=== PATIENT | female | born 1935 | race Caucasian/White ===

== ENCOUNTER 2016-06-30 07:42 | Emergency (ER) | payer OTHER ==
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
[2016-06-30 08:18] VITALS: BP 196/87; PULSE 75; RESP 18; TEMP 97.5; O2SAT 90
[2016-06-30] MEDS ORDERED: HYDROCODONE/APAP 5/325 TAB PO ONE (09:37)
== END 2016-06-30 10:38 | disposition home or self-care (01) ==
PROC: 0HQ1XZZ Repair Face Skin, External Approach (ICD-10-PCS; principal; 2016-06-30)
DX: S01.81XA Laceration without foreign body of other part of head, initial encounter (principal); S16.1XXA Strain of muscle, fascia and tendon at neck level, initial encounter; I10 Essential (primary) hypertension; Z79.82 Long term (current) use of aspirin; W18.39XA Other fall on same level, initial encounter; Y93.89 Activity, other specified

== ENCOUNTER 2016-08-04 19:30 | Observation (INO) | payer OTHER ==
[2016-08-04] MEDS ORDERED: NS 1,000 ML IV ONE (19:40)
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
[2016-08-04 19:59] LABS: % IMMATURE GRANULYOCYTES 0.3 % (0.0-1.1); ABSOLUTE IMMATURE GRANULOCYTES 0.02 10^3/uL (0.00-0.10); ADD DIFF? NO; ADD MORPH? NO; ADD SCAN? NO; ATYPICAL LYMPHOCYTE FLAG 10 (0-99); FRAGMENT RBC FLAG 0 (0-99); HEMATOCRIT 42.7 % (38.0-47.0); LEFT SHIFT FLG 0 (0-99); LIPEMIA HEMOLYSIS FLAG 80 (0-99); MEAN CELL HEMOGLOBIN 31.6 pg (27.9-34.1); MEAN CELL HEMOGLOBIN CONCENTR. 32.8 g/dL (32.4-36.7); MEAN CELL VOLUME 96.4 fL (81.5-99.8); MEAN PLATELET VOLUME 11.8 fL (8.7-11.7); PLATELET CLUMPS FLAG 0 (0-99); PLATELET COUNT 175 10^3/uL (150-400); RED BLOOD CELL COUNT 4.43 10^6/uL (4.18-5.33); RED CELL DISTRIBUTION WIDTH 13.5 % (11.5-15.2)
[2016-08-04 20:11] LABS: COLOR YELLOW; LEUKOCYTE ESTERASE,URINE NEGATIVE (NEGATIVE); NITRITE,URINE NEGATIVE (NEGATIVE)
[2016-08-04 20:24] LABS: RBC,URINE NONE SEEN /hpf (0-3)
[2016-08-04] MEDS ORDERED: CEFEPIME HCL 2 GM in D5W 100 ML IV ONE (20:26)
[2016-08-04 20:32] LABS: ALANINE AMINOTRANSFERASE 28 IU/L (9-52); ALBUMIN 4.7 g/dL (3.5-5.0); ALKALINE PHOSPHATASE 55 IU/L (38-126); ANION GAP 13 mEq/L (8-16); ASPARTATE AMINOTRANSFERASE 31 IU/L (14-46); BILIRUBIN,TOTAL 0.8 mg/dL (0.1-1.4); BILIRUBIN-CONJUGATED 0.5 mg/dL (0.0-0.5); BILIRUBIN-UNCONJUGATED 0.3 mg/dL (0.0-1.1); CALCIUM 9.9 mg/dL (8.5-10.4); CARBON DIOXIDE 28 mEq/l (22-31); CHLORIDE 101 mEq/L (97-110); CREATININE 1.1 mg/dL (0.6-1.0); GLOMERULAR FILTRATION RATE 48; GLUCOSE 103 mg/dL (70-100); POTASSIUM 4.3 mEq/L (3.5-5.2); SODIUM 142 mEq/L (134-144); TOTAL PROTEIN 8.3 g/dL (6.3-8.2)
[2016-08-04] MEDS ORDERED: ONDANSETRON 4 MG/2 ML VIAL IVP PRN (21:27)
[2016-08-04] MEDS ORDERED: ACETAMINOPHEN 325 MG TAB PO PRN (21:27)
[2016-08-04] MEDS ORDERED: ONDANSETRON DISINTEGRATING 4 MG TAB PO PRN (21:27)
[2016-08-04] MEDS ORDERED: NYSTATIN POWDER 15 GM BTL TP PRN (21:29)
[2016-08-04] MEDS ORDERED: LORAZEPAM PO PRN (21:29)
[2016-08-04] MEDS ORDERED: SENNOSIDES/DOCUSATE SODIUM TAB PO PRN ×2 (21:29)
[2016-08-04] MEDS ORDERED: MAGNESIUM HYDROXIDE 30 ML UDCUP PO PRN (21:29)
[2016-08-04] MEDS ORDERED: hydrALAZINE 25 MG TAB PO PRN (21:29)
[2016-08-04] MEDS ORDERED: LORazepam 1 MG TAB PO PRN (21:29)
[2016-08-04] MEDS ORDERED: HYDROCODONE/APAP 5/325 TAB PO PRN ×2 (21:29)
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
[2016-08-04] MEDS ORDERED: CARBOXYMETHYLCELLULOSE 0.5% 0.4 ML DROPERETTE EACHEYE PRN (22:14)
[2016-08-05 05:17] LABS: % IMMATURE GRANULYOCYTES 0.3 % (0.0-1.1); ABSOLUTE IMMATURE GRANULOCYTES 0.02 10^3/uL (0.00-0.10); ADD DIFF? NO; ADD MORPH? NO; ADD SCAN? NO; ATYPICAL LYMPHOCYTE FLAG 0 (0-99); FRAGMENT RBC FLAG 0 (0-99); HEMATOCRIT 39.3 % (38.0-47.0); HEMOGLOBIN 12.5 g/dL (12.6-16.3); LEFT SHIFT FLG 0 (0-99); LIPEMIA HEMOLYSIS FLAG 80 (0-99); MEAN CELL HEMOGLOBIN 30.8 pg (27.9-34.1); MEAN CELL HEMOGLOBIN CONCENTR. 31.8 g/dL (32.4-36.7); MEAN CELL VOLUME 96.8 fL (81.5-99.8); MEAN PLATELET VOLUME 11.9 fL (8.7-11.7); PLATELET CLUMPS FLAG 10 (0-99); PLATELET COUNT 172 10^3/uL (150-400); RED BLOOD CELL COUNT 4.06 10^6/uL (4.18-5.33); RED CELL DISTRIBUTION WIDTH 13.2 % (11.5-15.2)
[2016-08-05] MEDS ORDERED: COLCHICINE 0.6 MG CAP/TAB PO PRN (08:02)
[2016-08-05] MEDS ORDERED: SENNOSIDES 1 TAB PO PRN (08:02)
[2016-08-05] MEDS ORDERED: ENOXAPARIN 30 MG/0.3 ML SYR SC SCH (09:00)
[2016-08-05] MEDS ORDERED: fentaNYL 12 MCG PATCH TD SCH (09:00)
[2016-08-05] MEDS ORDERED: amLODIPine BESYLATE 5 MG TAB PO SCH (09:00)
[2016-08-05] MEDS ORDERED: LISINOPRIL 40 MG TAB PO SCH (09:00)
[2016-08-05] MEDS ORDERED: METOPROLOL SUCCINATE XR 50 MG TAB PO SCH (09:00)
[2016-08-05] MEDS ORDERED: fentaNYL 25 MCG PATCH TD SCH (09:00)
[2016-08-05] MEDS ORDERED: ASPIRIN EC 81 MG TAB PO SCH (09:00)
[2016-08-05] MEDS ORDERED: DULoxetine 60 MG CAP PO SCH (09:00)
[2016-08-05] MEDS: TOBRAMYCIN/DEXAMETH 5 ML OPHT.BTL RTEYE SCH ×2 (09:35→15:14)
[2016-08-05] MEDS: FUROSEMIDE 20 MG TAB PO SCH (09:36)
[2016-08-05 12:33] VITALS: BP 150/58; PULSE 68; RESP 14; TEMP 97.5; O2SAT 92
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
--- NOTE | 2016-08-05 14:34 | PDIAF ---
- Diagnosis Diagnosis: encephalopathy, agitation Code Status: Full Code - Medication Management Discharge Medications: Medications to Continue on Transfer Acetaminophen [Tylenol ES 500 mg (*)] 1,000 mg PO Q6 PRN 08/04/16 [Last Taken ] Amlodipine Besylate [Norvasc] 5 mg PO DAILY 08/04/16 [Last Taken 08/04/16] Aspirin EC [Aspirin EC 81 mg (*)] 81 mg PO DAILY 08/04/16 [Last Taken 08/04/16] Ativan Gel 0.5mg/1ml 1 ml PO Q6H PRN 08/04/16 [Last Taken 08/04/16] Calcium Carbonate [Tums 500MG (*)] 500 mg PO Q8H PRN 08/04/16 [Last Taken Unknown] Cholecalciferol Vit D3 [Vitamin D3 (*)] 5,000 units PO VALENCIA 08/04/16 [Last Taken Unknown] Colchicine [Colchicine (*)] 0.6 mg PO DAILY PRN 08/04/16 [Last Taken Unknown] DULoxetine [Cymbalta 60 MG (*)] 60 mg PO DAILY 08/04/16 [Last Taken 08/04/16] Furosemide [Lasix 20 MG (*)] 20 mg PO DAILY 08/04/16 [Last Taken 08/04/16] Hydralazine HCl 25 mg PO Q6H PRN 08/04/16 [Last Taken Unknown] Hydrocodone/Acetaminophen [[place] 5/325 (*)] 1 each PO Q4 PRN MDD HOLD FOR SEDATION 08/04/16 [Last Taken Unknown] Hydrocodone/Acetaminophen [[place] 5/325 (*)] 2 each PO Q4H PRN MDD HOLD FOR SEDATION 08/04/16 [Last Taken 08/04/16 07:00] LORazepam [Ativan (*)] 1 mg PO Q8H PRN 08/04/16 [Last Taken 08/03/16] Lisinopril [Zestril 40 mg (*)] 40 mg PO DAILY 08/04/16 [Last Taken 08/04/16] Magnesium Hydroxide [Milk of Magnesia] 30 ml PO Q24H PRN 08/04/16 [Last Taken ] Metoprolol Succinate Xr [Toprol Xl 50 mg (*)] 50 mg PO DAILY 08/04/16 [Last Taken 08/04/16] Nystatin Powder [Mycostatin Powder] 1 rafa TP Q8H PRN 08/04/16 [Last Taken Unknown] Polysorbate 80/Glycerin [Refresh Dry Eye Therapy Drops] 1 drop OP Q8H PRN [Last Taken 08/03/16] Sennosides [Senokot] 1 tab PO Q12H PRN 08/04/16 [Last Taken Unknown] Sennosides/Docusate Sodium [Senna-S Tablet] 2 each PO DAILY PRN 08/04/16 [Last Taken Unknown] Tobramycin/Dexamethasone [Tobradex Eye Drops] 1 drop RTEYE Q6H 08/04/16 [Last Taken Unknown] fentaNYL [Duragesic 12 MCG Patch (*)] 12 mcg TD Q72H 08/04/16 [Last Taken ] fentaNYL [Duragesic 25 MCG Patch (*)] 25 mcg TD Q72H 08/04/16 [Last Taken ] Acetaminophen [Tylenol 325mg (*)] 650 mg PO Q4HRS PRN #0 tab 08/05/16 [Last Taken Unknown] Discharge Medications: Refer to the Discharge Home Medication list for PRN reason. - Orders Services needed: Physical Therapy, Occupational Therapy Diet Recommendation: no restrictions on diet Diet Texture: Regular Texture Diet Bill Stockings Discontinue Date: apply jonathon wraps at night and remove in the a.m. - Follow Up Care Current Providers and Referrals: Patient,NotPresent [Unknown] - As per Instructions
--- NOTE | 2016-08-05 15:03 | GDS ---
[f rep st] DISCHARGE SUMMARY DISCHARGE DIAGNOSES: 1. Agitation/encephalopathy. 2. Hypertension. 3. Congestive heart failure. 4. Chronic obstructive pulmonary disease. Briefly, the patient is an 81-year-old woman who lives at [facility]. She was brought in for agitation. Per the staff, she started throwing food at them. She told me that they were upsetting her and throwing jello at her. She is calm and clear today. She will return to [facility]. HOSPITAL COURSE: 1. Agitation encephalopathy. She has no infectious etiology. CT scan shows atrophy and microvascular ischemic disease. Chest x-ray shows nothing acute. TSH is 3.6, vitamin B12 was 729. She does not have a urinary tract infection. I am wondering if maybe her fentanyl patch and her p.r.n. Ativan is making her more confused. During my interview, she is alert and oriented to person, place , time, and situation. 2. Hypertension. Blood pressure is 150/58. 3. Congestive heart failure. She has no signs or symptoms of decompensation. She does have some chronic lower extremity swelling bilaterally. 4. Chronic obstructive pulmonary disease on room air. PENDING LABS AND TESTS: None. CONDITION AT DISCHARGE: Stable. Blood pressure is 150/58, O2 saturation on room air 94%, respiratory rate is 14, pulse 68, temperature 36.4 Celsius. MEDICATIONS AT DISCHARGE: Please see the EMR. DISCHARGE INSTRUCTIONS: 1. Recommending that her legs be wrapped in Kp wraps. 2. Recommending considering cutting back her fentanyl dose which may be causing more confusion. /[id number]/MODL MTDD
== END 2016-08-05 19:00 ==
LOC: EDUNIT# → F3N 21:45
PROVIDERS: ADMIT Student in an Organized Health Care Education/Training Program; ATTEND Student in an Organized Health Care Education/Training Program
DX: F03.91 Unspecified dementia, unspecified severity, with behavioral disturbance (principal); I50.9 Heart failure, unspecified; J44.9 Chronic obstructive pulmonary disease, unspecified; E78.5 Hyperlipidemia, unspecified; M54.5 Low back pain; I11.0 Hypertensive heart disease with heart failure
CPT/HCPCS: 70450; 96361; 96365; 99285; G0378; J0696; J1650; 82607-90; J0692

== ENCOUNTER 2016-10-12 09:50 | Emergency (ER) | payer OTHER ==
--- NOTE | 2016-10-12 10:06 | CPEKG ---
Heart Rate: 68 RR Interval: 882 P-R Interval: 216 QRSD Interval: 68 QT Interval: 392 QTC Interval: 417 P [place]: 62 QRS [place]: -5 T Wave [place]: 74 EKG Severity - BORDERLINE ECG - EKG Impression: SINUS RHYTHM EKG Impression: BORDERLINE T ABNORMALITIES, ANT-LAT LEADS Electronically Signed By: Magnus Thomas 12-Oct-2016 11:04:17
--- NOTE | 2016-10-12 10:11 | EDPHY ---
H & P Stated Complaint: lethargic Time Seen by Provider: 10/12/16 10:08 HPI/ROS: CHIEF COMPLAINT: Reported lethargy HISTORY OF PRESENT ILLNESS: The patient is referred to the emergency department for evaluation of reported lethargy. She is currently at the memory unit at [facility]. The patient reportedly had a history of chest pain but the patient currently denies that symptom. The patient's only complaint in the emergency department is one of pain on the dorsum of her left foot secondary to a small blister. The patient denies history of fever, cough, congestion, dysuria, abdominal pain, chest pain, rash or additional acute complaints. REVIEW OF SYSTEMS: A comprehensive 10 point review of systems is otherwise negative aside from elements mentioned in the history of present illness. Source: Patient Exam Limitations: No limitations - Medical/Surgical History Hx Asthma: No Hx Chronic Respiratory Disease: Yes Hx Diabetes: No Hx Cardiac Disease: No Hx Renal Disease: No Hx Cirrhosis: No Hx Alcoholism: No Hx HIV/AIDS: No Hx Splenectomy or Spleen Trauma: No Other PMH: dementia with behavioral disturbance, CHF, COPD, mood disorder, hyperlipidemia, chronic lumbar pain, falls, - Social History Smoking Status: Never smoked - Physical Exam Exam: General Appearance: Elderly female, no acute distress Eyes: Pupils equal and round no pallor or injection ENT, Mouth: Mucous membranes moist Respiratory: There are no retractions, lungs are clear to auscultation Cardiovascular: Regular rate and rhythm Gastrointestinal: Abdomen is soft and nontender, no masses, bowel sounds normal Neurological: Alert and oriented x2, 5/5 strength noted all 4 extremities Skin: Warm and dry, no rashes, patient has a small blister to the dorsum of her left great toe without surrounding erythema or fluctuance Musculoskeletal: Neck is supple nontender Extremities: symmetrical, full range of motion Constitutional: Initial Vital Signs Temperature (C) 36.6 C 10/12/16 09:55 Heart Rate 74 10/12/16 09:55 Respiratory Rate 16 10/12/16 09:55 Blood Pressure 130/93 H 10/12/16 09:55 O2 Sat (%) 98 10/12/16 09:55 O2 Delivery Mode Nasal Cannula O2 (L/minute) 4 Allergies/Adverse Reactions: levofloxacin [From Levaquin] Allergy (Verified 08/04/16 19:47) Home Medications: Medication Instructions Recorded Acetaminophen [Tylenol ES 500 mg 1,000 mg PO Q6 PRN 08/04/16 (*)] Amlodipine Besylate [Norvasc] 5 mg PO DAILY 08/04/16 Aspirin EC [Aspirin EC 81 mg (*)] 81 mg PO DAILY 08/04/16 Ativan Gel 0.5mg/1ml 1 ml PO Q6H PRN 08/04/16 Calcium Carbonate [Tums 500MG (*)] 500 mg PO Q8H PRN 08/04/16 Cholecalciferol Vit D3 [Vitamin D3 5,000 units PO VALENCIA 08/04/16 (*)] Colchicine [Colchicine (*)] 0.6 mg PO DAILY PRN 08/04/16 DULoxetine [Cymbalta 60 MG (*)] 60 mg PO DAILY 08/04/16 Furosemide [Lasix 20 MG (*)] 20 mg PO DAILY 08/04/16 Hydralazine HCl 25 mg PO Q6H PRN 08/04/16 Hydrocodone/Acetaminophen [[place]uca 1 each PO Q4 PRN MDD HOLD FOR 08/04/16 5/325 (*)] SEDATION Hydrocodone/Acetaminophen [T[place]uca 2 each PO Q4H PRN MDD HOLD FOR 08/04/16 5/325 (*)] SEDATION LORazepam [Ativan (*)] 1 mg PO Q8H PRN 08/04/16 Lisinopril [Zestril 40 mg (*)] 40 mg PO DAILY 08/04/16 Magnesium Hydroxide [Milk of 30 ml PO Q24H PRN 08/04/16 Magnesia] Metoprolol Succinate Xr [Toprol Xl 50 mg PO DAILY 08/04/16 50 mg (*)] Nystatin Powder [Mycostatin Powder] 1 rafa TP Q8H PRN 08/04/16 Polysorbate 80/Glycerin [Refresh 1 drop OP Q8H PRN 08/04/16 Dry Eye Therapy Drops] Sennosides [Senokot] 1 tab PO Q12H PRN 08/04/16 Sennosides/Docusate Sodium 2 each PO DAILY PRN 08/04/16 [Senna-S Tablet] Tobramycin/Dexamethasone [Tobradex 1 drop RTEYE Q6H 08/04/16 Eye Drops] fentaNYL [Duragesic 12 MCG Patch 12 mcg TD Q72H 08/04/16 (*)] fentaNYL [Duragesic 25 MCG Patch 25 mcg TD Q72H 08/04/16 (*)] Acetaminophen [Tylenol 325mg (*)] 650 mg PO Q4HRS PRN #0 tab 08/05/16 Medical Decision Making - Diagnostics EKG Interpretation: EKG: Complete interpretation has been separately recorded in the [employer] archive. Summary impression: Sinus rhythm ED Course/Re-evaluation: The patient presents to the ED with reported altered mental status. Her workup in the emergency department reveals evidence of urinary tract infection. The patient is noted to be neurologically intact. Staff had reported the patient had a history of chest pain although the patient denied that. Her EKG demonstrates no evidence of ischemia. The patient did have an IV established. She received a L of normal saline. She received IV ceftriaxone for her urinary tract infection. The patient underwent serial examinations in the ED by myself over a 2 hour period. I reviewed the patient's workup with her daughter. The patient will be discharged back to [facility] facility a prescription for Keflex to take for the next 5 days. The patient should return to the ED sooner for vomiting, high fever, new pain, altered mental status or other concerns. Differential Diagnosis: Differential diagnosis considered includes urinary tract infection, dehydration , metabolic abnormality, progressive dementia, cardiac arrhythmia, ischemia - Data Points Laboratory Results: Laboratory Results 10/12/16 10:09 10/12/16 10:09 10/12/16 10/12/16 10/12/16 10:20 10:09 10:09 WBC 8.41 10^3/uL 10^3/uL (3.80-9.50) RBC 3.84 10^6/uL L 10^6/uL (4.18-5.33) Hgb 12.1 g/dL L g/dL (12.6-16.3) Hct 37.9 % L % (38.0-47.0) MCV 98.7 fL fL (81.5-99.8) MCH 31.5 pg pg (27.9-34.1) MCHC 31.9 g/dL L g/dL (32.4-36.7) RDW 13.2 % % (11.5-15.2) Plt Count 175 10^3/uL 10^3/uL (150-400) MPV 12.7 fL H fL (8.7-11.7) Neut % (Auto) 67.4 % % (39.3-74.2) Lymph % (Auto) 10.0 % L % (15.0-45.0) [place] % (Auto) 13.3 % H % (4.5-13.0) Eos % (Auto) 8.6 % H % (0.6-7.6) Baso % (Auto) 0.5 % % (0.3-1.7) Nucleat RBC Rel Count 0.0 % % (0.0-0.2) Absolute Neuts (auto) 5.67 10^3/uL 10^3/uL (1.70-6.50) Absolute Lymphs (auto) 0.84 10^3/uL L 10^3/uL (1.00-3.00) Absolute Monos (auto) 1.12 10^3/uL H 10^3/uL (0.30-0.80) Absolute Eos (auto) 0.72 10^3/uL H 10^3/uL (0.03-0.40) Absolute Basos (auto) 0.04 10^3/uL 10^3/uL (0.02-0.10) Absolute Nucleated RBC 0.00 10^3/uL 10^3/uL (0-0.01) Immature Gran % 0.2 % % (0.0-1.1) Immature Gran # 0.02 10^3/uL 10^3/uL (0.00-0.10) Sodium 149 mEq/L H mEq/L (134-144) Potassium 4.3 mEq/L mEq/L (3.5-5.2) Chloride 113 mEq/L H mEq/L (97-110) Carbon Dioxide 24 mEq/l mEq/l (22-31) Anion Gap 12 mEq/L mEq/L (8-16) BUN 24 mg/dL H mg/dL (7-23) Creatinine 1.0 mg/dL mg/dL (0.6-1.0) Estimated GFR 53 Glucose 82 mg/dL mg/dL (70-100) Calcium 9.3 mg/dL mg/dL (8.5-10.4) Urine Color YELLOW Urine Appearance CLEAR Urine pH 7.0 (5.0-7.5) Ur Specific [place] 1.018 (1.002-1.030) Urine Protein NEGATIVE (NEGATIVE) Urine Ketones NEGATIVE (NEGATIVE) Urine Blood NEGATIVE (NEGATIVE) Urine Nitrate POSITIVE H (NEGATIVE) Urine Bilirubin NEGATIVE (NEGATIVE) Urine Urobilinogen NEGATIVE EU EU (0.2-1.0) Ur Leukocyte Esterase NEGATIVE (NEGATIVE) Urine RBC 1-3 /hpf /hpf (0-3) Urine WBC 5-10 /hpf H /hpf (0-3) Ur Epithelial Cells TRACE /lpf /lpf (NONE-1+) Urine Bacteria TRACE /hpf H /hpf (NONE SEEN) Urine Mucus TRACE /lpf /lpf (NONE-1+) Urine Glucose NEGATIVE (NEGATIVE) Medications Given: Discontinued Medications Ceftriaxone Sodium/Dextrose (Rocephin 1 Gm (Premix)) 50 mls @ 100 mls/hr IV EDNOW ONE PRN Reason: Protocol Stop: 10/12/16 11:48 Last Admin: 10/12/16 11:42 Dose: 50 mls Departure - Departure Disposition: Home, Routine, Self-Care Clinical Impression: Altered mental status, Urinary tract infection Condition: Good Instructions: Urinary Tract Infection in Women (ED) Additional Instructions: 1. Please take antibiotics as directed for next 5 days. 2. Please follow up as scheduled with Dr. Crawley. 3. Please return to the ED for markedly worsening symptoms or other concerns. Referrals: MATTI JUAN [Primary Care Provider] - As per Instructions
[2016-10-12 10:17] LABS: % IMMATURE GRANULYOCYTES 0.2 % (0.0-1.1); ABSOLUTE IMMATURE GRANULOCYTES 0.02 10^3/uL (0.00-0.10); ADD DIFF? NO; ADD MORPH? NO; ADD SCAN? NO; ATYPICAL LYMPHOCYTE FLAG 10 (0-99); FRAGMENT RBC FLAG 0 (0-99); HEMATOCRIT 37.9 % (38.0-47.0); HEMOGLOBIN 12.1 g/dL (12.6-16.3); LEFT SHIFT FLG 0 (0-99); LIPEMIA HEMOLYSIS FLAG 80 (0-99); MEAN CELL HEMOGLOBIN 31.5 pg (27.9-34.1); MEAN CELL HEMOGLOBIN CONCENTR. 31.9 g/dL (32.4-36.7); MEAN CELL VOLUME 98.7 fL (81.5-99.8); MEAN PLATELET VOLUME 12.7 fL (8.7-11.7); PLATELET CLUMPS FLAG 0 (0-99); PLATELET COUNT 175 10^3/uL (150-400); RED BLOOD CELL COUNT 3.84 10^6/uL (4.18-5.33); RED CELL DISTRIBUTION WIDTH 13.2 % (11.5-15.2)
[2016-10-12 10:35] LABS: ANION GAP 12 mEq/L (8-16); CALCIUM 9.3 mg/dL (8.5-10.4); CARBON DIOXIDE 24 mEq/l (22-31); CHLORIDE 113 mEq/L (97-110); GLOMERULAR FILTRATION RATE 53; GLUCOSE 82 mg/dL (70-100); POTASSIUM 4.3 mEq/L (3.5-5.2); SODIUM 149 mEq/L (134-144)
[2016-10-12 11:01] LABS: BACTERIA TRACE /hpf (NONE SEEN); COLOR YELLOW; LEUKOCYTE ESTERASE,URINE NEGATIVE (NEGATIVE); MUCUS TRACE /lpf (NONE-1+); NITRITE,URINE POSITIVE (NEGATIVE)
[2016-10-12 13:02] VITALS: BP 128/86; PULSE 78; RESP 18; TEMP 98.2; O2SAT 97
== END 2016-10-12 13:02 | disposition home or self-care (01) ==
LOC: EDUNIT#
DX: R41.82 Altered mental status, unspecified (principal); N39.0 Urinary tract infection, site not specified; B96.89 Other specified bacterial agents as the cause of diseases classified elsewhere; J44.9 Chronic obstructive pulmonary disease, unspecified; I50.9 Heart failure, unspecified; Z79.82 Long term (current) use of aspirin
CPT/HCPCS: 93005; 96365; 99284; J0696